=== PATIENT | female | born 1965 | race Hispanic/Latino ===

== ENCOUNTER → 2024-04-11 | Outpatient (REF) | payer OTHER ==
[~2024-04-11] MED LIST: ARIMIDEX1 MG PO; ATORVASTATIN CA20 MG PO; CALCIUM + VIT1 EACH; HYDROCHLOROTHIA25 MG; IOPAMIDOL 370 MG/ML 100 ML INFUS..BTL INJ ONE; LINZESS145 MCG PO; LOSARTAN POTASS25 MG PO; MOMETASONE FURO15 G2; NEURONTIN300 MG PO; PROTONIX20 MG PO; TYLENOL325 MG PO; ULTRAM 50MG50 MG PO
[2024-04-11 16:10] LABS: CREATININE, SERUM 0.66 mg/dL (0.57-1.11)
== END ==
LOC: CT 15:20
PROVIDERS: ATTEND Nurse Practitioner Family
DX: R10.33 Periumbilical pain (principal); R19.8 Other specified symptoms and signs involving the digestive system and abdomen
CPT/HCPCS: 36415; 74177; 82565; 84520; Q9967